=== PATIENT | female | born 1965 | race Caucasian/White ===

== ENCOUNTER 2017-11-11 06:20 | Day surgery (SDC) | payer OTHER ==
[~2017-11-11 06:20] MED LIST: Dextrose 5%-0.45% NaCl 1,000 ML IV SCH; Midazolam 1 MG/ML 2 ML SDV ONE; Sodium Chloride 0.9% 10 ML Syringe FLUSH PRN; fentaNYL 100 MCG/2 ML SDV ONE
[2017-11-11] MEDS ORDERED: fentaNYL 100 MCG/2 ML SDV IV ONE ×5 (06:21→07:35)
[2017-11-11] MEDS ORDERED: Midazolam 1 MG/ML 2 ML SDV IV ONE ×7 (06:21→07:32)
[2017-11-11] MEDS ORDERED: Dextrose 5%-0.45% NaCl 1,000 ML IV SCH (07:00)
--- NOTE | 2017-11-11 08:45 | OR ---
DATE: 11/11/2017 PROCEDURE: Total colonoscopy. INSTRUMENT USED: CF-H180AL Olympus video colonoscope. PREMEDICATIONS: Fentanyl 150 mcg intravenous, Versed 4 mg intravenous. Nasal O2 cannula. The procedure was done under pulse oximetry, BP recording, and cardiac sonographer. INDICATION: Screening colonoscopic examination is done for detection of any polypoid lesions and removal, endoscopic hemostasis therapy if needed. DESCRIPTION OF PROCEDURE: Initial rectal exam was unremarkable. Rigid anoscopy was normal. The colonoscope was passed with ease. Few scattered diverticula were noted, more so in the distal left colon along with deformity. There was some amount of fecal material that had to be aspirated. The scope was passed with ease up to the ileocecal area. Photographs were taken of the normal-appearing cecum identified by landmarks of appendiceal orifice and double-bulged ileocecal folds. No bleeding was noted from any of the visualized areas at the commencement of the examination. The bowel preparation was adequate. No stricture. No vascular ectasia. No large isolated ulceration. No evidence of diffuse inflammatory bowel disease in the form of friability, contact bleeding, or ulcerations. No polyp or tumor mass identified. The colon was found to be tortuous and redundant. Probing the proximal sides of folds and flexures, using adequate distention and clearing up the stool material, withdrawal of the scope was made. Psfoe-zu-[id number] time over 6 minutes. No bleeding was noted from any of the visualized areas at the completion of examination. IMPRESSION: Diverticulosis. The patient tolerated the procedure well. [facility] /[id number]
--- NOTE | 2017-11-11 09:33 | LETTER ---
11/11/2017 Fartun Pickard MD [address] [id number] RE: JOHN ELIZABETH TERRELL : [address] Pickard: Ms. Elizabeth Terrell Eleazarricco had colonoscopic examination done this morning and she tolerated the procedure well. I herewith send a copy of the endoscopy note and photographs for your review. Thank you. Sincerely, [facility] /[id number]
== END 2017-11-11 09:49 | disposition home or self-care (01) ==
LOC: DL.ENDO 06:20
PROVIDERS: ATTEND Internal Medicine Gastroenterology
DX: Z12.11 Encounter for screening for malignant neoplasm of colon (principal); K57.30 Diverticulosis of large intestine without perforation or abscess without bleeding; K56.2 Volvulus; N18.9 Chronic kidney disease, unspecified; E66.09 Other obesity due to excess calories
CPT/HCPCS: 45378; J2250; J3010; J7042